=== PATIENT | female | born 1960 | race Caucasian/White ===

== ENCOUNTER 2025-01-08 13:17 | Outpatient (CLI) | payer BC ==
--- NOTE | 2025-01-08 14:25 | RADIOLOGY REPORT ---
CLINICAL INDICATION: TAILORS BUNION RT. FOOT TECHNIQUE: 3 radiographic views of the right foot were obtained. Comparison: None FINDINGS/IMPRESSION: There is no evidence of acute fracture or dislocation. Postsurgical changes are visualized in the 3rd digit.
== END 2025-01-08 23:59 | disposition home or self-care (01) ==
LOC: RAD 13:17
PROVIDERS: ATTEND Podiatrist Foot & Ankle Surgery
DX: M21.621 Bunionette of right foot (principal)
CPT/HCPCS: 73630